=== PATIENT | female | born 1970 | race Two or more races ===

== ENCOUNTER 2020-11-07 12:00 | Day surgery (SDC) | payer OTHER ==
[~2020-11-07 12:00] MED LIST: SYNTHROID125 MCG PO
== END 2020-11-07 19:50 | disposition home or self-care (01) ==
LOC: CIR.AMB 12:00
PROVIDERS: ATTEND Orthopaedic Surgery Hand Surgery
DX: S62.612A Displaced fracture of proximal phalanx of right middle finger, initial encounter for closed fracture (principal); S62.624A Displaced fracture of middle phalanx of right ring finger, initial encounter for closed fracture; Z20.828 Contact with and (suspected) exposure to other viral communicable diseases

== ENCOUNTER 2021-11-20 06:54 | Day surgery (SDC) | payer OTHER | END 2021-11-20 15:00 | disposition home or self-care (01) | LOC: CIR.AMB 06:54 | PROVIDERS: ATTEND Orthopaedic Surgery Hand Surgery | DX: M20.091 Other deformity of right finger(s) (principal) ==